=== PATIENT | male | born 1945 | race Asian ===

== ENCOUNTER → 2017-01-12 | Outpatient (CLI) | payer MEDICARE, OTHER | END | disposition home or self-care (01) | LOC: RADPV 10:02 | PROVIDERS: ATTEND Family Medicine | DX: I70.0 Atherosclerosis of aorta (principal) | CPT/HCPCS: 71020 ==

== ENCOUNTER → 2018-08-23 | Outpatient (CLI) | payer MEDICARE, OTHER | END | disposition home or self-care (01) | LOC: RADPV 13:36 | PROVIDERS: ATTEND Family Medicine | DX: R05 Cough (principal); I70.0 Atherosclerosis of aorta; I51.7 Cardiomegaly ==